=== PATIENT | male | born 1945 | race Caucasian/White ===

== ENCOUNTER → 2023-08-27 08:22 | Outpatient (REF) | payer MEDICARE, OTHER, SELFPAY ==
[2023-08-27 10:01] LABS: % Eosinophils 9.7 % (0-6); % Immature Granulocytes 0.3 % (0-0.5); % Lymphocytes 16.5 % (20.5-51.1); % Monocytes 5.5 % (1.7-9.3); Absolute Basophils 0.1 10^3/uL (0-0.2); Absolute Eosinophils 1.2 10^3/uL (0-0.7); Absolute Lymphocytes 2.1 10^3/uL (1.2-3.4); Absolute Monocytes 0.7 10^3/uL (0.1-0.6); Absolute Neutrophils 8.4 10^3/uL (1.4-6.5); Hematocrit 47.5 % (39.0-52.0); Hemoglobin 15.7 g/dL (13.0-18.0); Mean Corp Hgb Conc. 33.1 g/dL (33.0-37.0); Mean Corpuscular Hgb 31.1 pg (27.0-31.0); Mean Corpuscular Volume 94.1 fL (80.0-94.0); Mean Platelet Volume 9.7 fL (7.4-10.4); Nucleated Red Blood Cells % 0 % (-); Platelet Count 297 10^3/uL (130-400); Red Blood Cell Count 5.05 10^6/uL (4.70-6.10); Red Cell Dist. Width 15.3 % (11.5-14.5); White Blood Cell Count 12.5 10^3/uL (4.8-10.8)
[2023-08-27 10:45] LABS: ALT (SGPT) 24 U/L (0-50); AST (SGOT) 36 U/L (17-59); Albumin 3.2 g/dl (3.5-5.0); Alkaline Phosphatase 109 U/L (38-126); Blood Urea Nitrogen 12 mg/dl (9-20); Carbon Dioxide 32 mmol/L (22-30); Chloride 108 mmol/L (98-107); Glucose 121 mg/dl (70-99); HDL Cholesterol 36 mg/dl; LDL Cholesterol, Calculated 56 mg/dl; Potassium 3.6 mmol/L (3.5-5.1); Sodium 141 mmol/L (135-145); Total Bilirubin 0.7 mg/dl (0.2-1.3); Total Cholesterol 111 mg/dl (50-199); Total Protein 6.5 g/dl (6.3-8.2); Triglyceride 99 mg/dl (10-149); Very Low Density Lipoprotein 19 mg/dl (0-30); eGFR > 60.00
[2023-08-27 11:07] LABS: TSH Reflex To Free T4 3.23 uIU/ml (0.47-4.68)
[2023-08-27 11:11] LABS: Microalbumin, Random Urine < 0.6 mg/dl (0.6-1.7)
[2023-08-27 13:24] LABS: Glycohemoglobin (HgbA1c) 6.2 % (4.0-5.6)
== END ==
LOC: HWLAB 08:22
PROVIDERS: ATTENDING PHYSICIAN Nurse Practitioner Family
DX: D72.829 Elevated white blood cell count, unspecified (principal); I10 Essential (primary) hypertension; E78.2 Mixed hyperlipidemia; E11.9 Type 2 diabetes mellitus without complications; J84.10 Pulmonary fibrosis, unspecified; J98.4 Other disorders of lung; J47.9 Bronchiectasis, uncomplicated; I25.10 Atherosclerotic heart disease of native coronary artery without angina pectoris; E88.09 Other disorders of plasma-protein metabolism, not elsewhere classified; R19.7 Diarrhea, unspecified; M54.2 Cervicalgia; R31.9 Hematuria, unspecified; Z12.5 Encounter for screening for malignant neoplasm of prostate; E66.9 Obesity, unspecified; R63.4 Abnormal weight loss
CPT/HCPCS: 36415; 80053; 80061; 82043; 83036; 84443; 85025

== ENCOUNTER → 2023-08-29 15:23 | Outpatient (REF) | payer MEDICARE, OTHER, SELFPAY | LOC: HWRAD 15:23 | PROVIDERS: ATTENDING PHYSICIAN Nurse Practitioner Family | DX: R05.9 Cough, unspecified (principal); J84.10 Pulmonary fibrosis, unspecified | CPT/HCPCS: 71046 ==

== ENCOUNTER → 2023-09-18 08:10 | Outpatient (REF) | payer MEDICARE, OTHER, SELFPAY | LOC: HWRAD 08:10 | PROVIDERS: ATTENDING PHYSICIAN Nurse Practitioner Family; OTHER PHYSICIAN Internal Medicine; REFERRING PHYSICIAN Internal Medicine Critical Care Medicine | DX: R63.4 Abnormal weight loss (principal); R05.9 Cough, unspecified; J84.10 Pulmonary fibrosis, unspecified | CPT/HCPCS: 71250; 76700 ==

== ENCOUNTER 2023-09-29 11:20 | Emergency (ER) | payer MEDICARE, OTHER, SELFPAY ==
[2023-09-29 11:21] VITALS: BP 174/79
--- NOTE | 2023-09-29 11:29 | ED.GENMED ---
History of Present Illness
General
Chief Complaint: Flank Pain
Source: patient
Exam Limitations: none
Time Seen by Provider: 09/29/23 11:26
Travel History
Have you had any contact with someone who has COVID-19?: No
Do you have any symptoms of coronavirus? Fever > 100 degrees, chills, cough, shortness of breath, sore throat, loss of taste or smell, muscle aches, or headache?: No
History of Present Illness
History of Present Illness:
See MDM
Past History
Past History
ED Past Medical History: CAD, HTN, Hypercholesterolemia and Other (Kidney stones)
ED Past Surgical History: Cardiac and Tonsilectomy
Social History
Tobacco: Non-smoker
Alcohol: None
Phy Exam
Physical Exam
Physical Exam:
See MDM
Course
Orders/Labs/Results
Orders:
Orders
09/29/23 11:28
CT Abd/pel Without Iv Or Oral Urgent
Comment:
Reason For Exam: Sudden R flank pain
0.9% Sodium Chloride 1000 ml [Nss] 1,000 ml IV BOLUS
Ketorolac [Toradol] 30 mg IV NOW STA
Morphine Sulfate 4 mg IV NOW STA
Ondansetron Injectable [Zofran] 4 mg IV NOW STA
09/29/23 12:03
Complete Blood Count/With Diff Urgent
Comprehensive Metabolic Panel Urgent
Urinalysis Reflex To Culture Urgent
Date Specimen was Collected: 09/29/23
Time Specimen was Collected: 11:52
Urine Microscopic Reflex Cult Urgent
Abnormal Lab Results
09/29/23
12:03
WBC 17.0 H 10^3/uL
(4.8-10.8)
MCV 95.7 H fL
(80.0-94.0)
MCH 31.6 H pg
(27.0-31.0)
RDW 15.9 H %
(11.5-14.5)
Abs Immat Gran (auto) 0.1 H 10^3/uL
(0-0.05)
Absolute Neuts (auto) 14.8 H 10^3/uL
(1.4-6.5)
Absolute Lymphs (auto) 1.1 L 10^3/uL
(1.2-3.4)
Neutrophils % 87.0 H %
(42.2-75.2)
Lymphocytes % 6.6 L %
(20.5-51.1)
BUN 22 H mg/dl
(9-20)
Glucose 167 H mg/dl
(70-99)
Ur Occult Blood Reflex 2+ A
(Negative)
Urine RBC 3-6 A /HPF
(0-2)
Urine Glucose 3+ A
(Negative)
09/29/23 12:03
09/29/23 12:03
Vital Signs
Initial and Last Documented VS:
Initial Vital Signs
Pulse Resp BP Pulse Ox
47 18 174/79 98
09/29/23 11:21 09/29/23 11:21 09/29/23 11:21 09/29/23 11:21
Last Documented Vital Signs
Pulse Resp BP Pulse Ox
66 18 129/79 97
09/29/23 14:45 09/29/23 14:45 09/29/23 14:45 09/29/23 14:45
MDM/Problems Addressed
Differential Diagnosis Includes:
HPI and MDM Narrative:
77-year-old male presenting for evaluation of sudden onset of right flank pain. This occurred while he was eating breakfast. The pain is shooting into his right groin. This is reminiscent of prior episode where he was diagnosed with kidney stone.
He is nauseous but no vomiting. He denies hematuria or urinary symptoms.
I went to the patient's room immediately. Will treat pain with morphine and Toradol and will treat nausea with Zofran. Will obtain CT to rule out kidney stone pathology
Physical exam
General: Uncomfortable
HEENT: protecting airway
Neck: appears supple
CV: No evidence of cyanosis
Resp: No accessory muscle use
Abd: Non-distended. No abdominal tenderness localized to palpation
Extremities: No deformities
Neuro: alert
Psych: Normal affect
Skin: Intact
Problems Addressed including Acute and Chronic Conditions affecting care:
1. Flank pain
Acuity: acute
Prognosis: stable
Details: Given his history, likely in the setting of kidney stone pathology. Will obtain CT. Patient given Toradol and morphine
2. Nausea
Acuity: acute
Prognosis: stable
Details: Will give IV Zofran
Updates
CT consistent with distal right stone. On multiple reassessments, patient feeling better. Urine negative for infection. Patient will follow-up with PCP and urologist.
Differential Diagnosis (but not limited to): Kidney stage, appendicitis, colitis
Testing considered: EKG
Drug therapy (if applicable): OTC meds, please see d/c instruction regarding Rx drugs
Amount and/or Complexity of Data Reviewed
Clinical info obtained from: Patient
External data reviewed: N/A
Labs I independently reviewed (but not limited to): Leukocytosis (likely reactive)
Radiology: The CT scan was personally and independently reviewed. In addition, official CT report reviewed.
Pulse Ox: not hypoxic
EKG independently reviewed: N/A
Arabic Teacher: N/A
Critical Care: N/A
Risk of Complication:
Social Determinants of health: Good social support
Discussed with other providers: N/A
Escalation of Care includes Admit/Obs: After being observed in the Emergency Department, pt stable for discharge.
Occasional wrong word or 'sound a like' substitutions may have occurred due to the inherent limitations of voice recognition software. Read the chart carefully and recognize, using context, where substitutions have occurred.
*Critical Care Note
Total Time (30-74mins, 75-104mins- exclusive of procedures): Not Applicable
ED Attending Note
-
Portions of this chart may have been created with voice recognition software.� Occasional wrong word or��sound alike� substitutions may have occurred due to the inherent limitations of voice recognition software.
Discharge Plan
Departure
Patient Disposition: Home (Routine Discharge)
Date of Disposition: 09/29/23
Time of Disposition: 15:12
Patient with high blood pressure during this ER visit?: No
Discharge Problem:
Kidney stone on right side
Instructions: Kidney Stones (DC), How to Strain Your Urine
Prescriptions:
New
tamsulosin [Flomax] 0.4 mg Capsule
0.4 mg PO DAILY Qty: 14 0RF
diclofenac potassium 50 mg tablet
50 mg PO BID Qty: 20 0RF
ondansetron 4 mg Tablet,Disintegrating
4 mg PO BIDPRN PRN (Reason: nausea/vomiting) Qty: 10 0RF
oxycodone 5 mg tablet
5 mg PO Q8H PRN (Reason: Pain) Qty: 14 0RF
Referrals:
Rosendo Gonzalez CRNP [Family Provider] -
Activity Restrictions/Additional Instructions:
Please return for any worsening symptoms.
You may return at any time if you have further concerns.
Please follow up with your doctor at the first available appointment, preferably this week.
Thank you for choosing [facility].
Interventions
Interventions:
*Risk Screen - Suicide Last Done: 09/29/23 11:21
*General Assessment Last Done: 09/29/23 11:21
*Neglect/Abuse Screening Last Done: 09/29/23 11:21
*ED COVID-19 Vaccine History Last Done: 09/29/23 11:21
NT-Eojxge-Zcddbvutpn Assessment Last Done: 09/29/23 12:19
ED-Male Genitourinary Assessment Last Done: 09/29/23 12:21
[2023-09-29] MEDS: MORPHINE SULFATE 4 MG IV (12:05)
[2023-09-29] MEDS: ZOFRAN 4 MG IV (12:05)
[2023-09-29] MEDS: TORADOL 30 MG IV (12:06)
[2023-09-29] MEDS: NSS 1000 IV (12:10)
[2023-09-29 12:28] LABS: Urine Albumin Negative (Neg - Trace); Urine Bilirubin Negative (Negative); Urine Character Clear (Clear); Urine Color Yellow; Urine Glucose 3+ (Negative); Urine Ketone Negative (Negative); Urine Leukocyte Negative (Negative); Urine Nitrite Negative (Negative); Urine Occult Blood 2+ (Negative); Urine Specific Gravity 1.015 (<1.030); Urine Urobilinogen Negative (Neg - 1+)
[2023-09-29 12:29] LABS: % Basophils 0.4 % (0-2); % Eosinophils 2.8 % (0-6); % Immature Granulocytes 0.4 % (0-0.5); % Lymphocytes 6.6 % (20.5-51.1); % Monocytes 2.8 % (1.7-9.3); Absolute Basophils 0.1 10^3/uL (0-0.2); Absolute Eosinophils 0.5 10^3/uL (0-0.7); Absolute Immature Granulocytes 0.1 10^3/uL (0-0.05); Absolute Lymphocytes 1.1 10^3/uL (1.2-3.4); Absolute Monocytes 0.5 10^3/uL (0.1-0.6); Absolute Neutrophils 14.8 10^3/uL (1.4-6.5); Hematocrit 51.8 % (39.0-52.0); Hemoglobin 17.1 g/dL (13.0-18.0); Mean Corpuscular Hgb 31.6 pg (27.0-31.0); Mean Corpuscular Volume 95.7 fL (80.0-94.0); Mean Platelet Volume 10.4 fL (7.4-10.4); Nucleated Red Blood Cells % 0 % (-); Platelet Count 229 10^3/uL (130-400); Red Blood Cell Count 5.41 10^6/uL (4.70-6.10); Red Cell Dist. Width 15.9 % (11.5-14.5)
[2023-09-29 12:33] LABS: ALT (SGPT) 22 U/L (0-50); AST (SGOT) 35 U/L (17-59); Albumin 3.6 g/dl (3.5-5.0); Alkaline Phosphatase 91 U/L (38-126); Blood Urea Nitrogen 22 mg/dl (9-20); Calcium 9.3 mg/dl (8.4-10.2); Carbon Dioxide 29 mmol/L (22-30); Chloride 104 mmol/L (98-107); Glucose 167 mg/dl (70-99); Potassium 3.9 mmol/L (3.5-5.1); Sodium 141 mmol/L (135-145); Total Bilirubin 0.8 mg/dl (0.2-1.3); Total Protein 6.7 g/dl (6.3-8.2); eGFR > 60.00
[2023-09-29 12:47] LABS: Urine White Cell 0-2 /HPF (0-5)
[2023-09-29 14:09] VITALS: BP 113/73
[2023-09-29 14:44] VITALS: BP 128/79
[2023-09-29 14:45] VITALS: BP 129/79
== END 2023-09-29 15:39 | disposition home or self-care (01) ==
LOC: EMR 11:20
PROVIDERS: EMERGENCY PHYSICIAN Student in an Organized Health Care Education/Training Program; FAMILY PHYSICIAN Nurse Practitioner Family
DX: N20.0 Calculus of kidney (principal); D72.829 Elevated white blood cell count, unspecified; Z87.442 Personal history of urinary calculi
CPT/HCPCS: 99284; 96374; 96375 ×2; 74176; 80053; 81003; 81015; 85025

== ENCOUNTER → 2023-10-07 10:25 | Outpatient (REF) | payer MEDICARE, OTHER, SELFPAY ==
[2023-10-07 12:31] LABS: % Basophils 0.5 % (0-2); % Eosinophils 6.7 % (0-6); % Immature Granulocytes 0.3 % (0-0.5); % Lymphocytes 9.9 % (20.5-51.1); % Neutrophils 76.6 % (42.2-75.2); Absolute Basophils 0.1 10^3/uL (0-0.2); Absolute Eosinophils 1.2 10^3/uL (0-0.7); Absolute Immature Granulocytes 0.1 10^3/uL (0-0.05); Absolute Lymphocytes 1.7 10^3/uL (1.2-3.4); Absolute Neutrophils 13.2 10^3/uL (1.4-6.5); Hematocrit 48.8 % (39.0-52.0); Hemoglobin 15.7 g/dL (13.0-18.0); Mean Corp Hgb Conc. 32.2 g/dL (33.0-37.0); Mean Corpuscular Hgb 31.4 pg (27.0-31.0); Mean Corpuscular Volume 97.6 fL (80.0-94.0); Mean Platelet Volume 10.8 fL (7.4-10.4); Nucleated Red Blood Cells % 0 % (-); Platelet Count 224 10^3/uL (130-400); Red Cell Dist. Width 15.8 % (11.5-14.5); White Blood Cell Count 17.2 10^3/uL (4.8-10.8)
== END ==
LOC: HWLAB 10:25
PROVIDERS: ATTENDING PHYSICIAN Internal Medicine Critical Care Medicine; FAMILY PHYSICIAN Nurse Practitioner Family
DX: R91.8 Other nonspecific abnormal finding of lung field (principal)
CPT/HCPCS: 36415; 85025

== ENCOUNTER → 2023-10-14 13:15 | Outpatient (REF) | payer MEDICARE, OTHER, SELFPAY | LOC: HWRAD 13:15 | PROVIDERS: ATTENDING PHYSICIAN Internal Medicine Critical Care Medicine; FAMILY PHYSICIAN Nurse Practitioner Family | DX: R91.8 Other nonspecific abnormal finding of lung field (principal); Z87.01 Personal history of pneumonia (recurrent) | CPT/HCPCS: 71250 ==

== ENCOUNTER 2023-10-15 06:32 | Day surgery (SDC) | payer MEDICARE, OTHER, SELFPAY ==
[2023-10-02 09:22] VITALS: BMI 26.1
--- NOTE | 2023-10-06 12:09 | PTCARENOTE ---
Gisselle at 's office was notified of WBC count of 17.0 collected on 09/28.
--- NOTE | 2023-10-09 12:15 | PTCARENOTE ---
Patients 10/06 WBC 17.2 message left on machine for Gisselle Bob' office
[2023-10-15] VITALS (12 sets, daily range): BP systolic 96–134; BP diastolic 59–78; BMI 25.4
[2023-10-15 09:33] LABS: Glucose - Point of Care 80 mg/dl (70-99)
[2023-10-15 12:29] LABS: Glucose - Point of Care 123 mg/dl (70-99)
== END 2023-10-15 14:05 | disposition home or self-care (01) ==
LOC: GI 06:32
PROVIDERS: ATTENDING PHYSICIAN Internal Medicine Critical Care Medicine
DX: D38.1 Neoplasm of uncertain behavior of trachea, bronchus and lung (principal); J84.9 Interstitial pulmonary disease, unspecified; R91.8 Other nonspecific abnormal finding of lung field; R05.3 Chronic cough
CPT/HCPCS: 31629; 31623; 31628; 31624; 31654; 88172; 88173; 88305; 71045; 76000; 82962; 87015; 87070; 87102; 87116; 87205; 88112; 88333; 88341; 88342; 94640; C1887

== ENCOUNTER → 2024-01-21 09:49 | Outpatient (REF) | payer MEDICARE, OTHER, SELFPAY | LOC: MRI 3T 09:49 | PROVIDERS: ATTENDING PHYSICIAN Physician Assistant; FAMILY PHYSICIAN Nurse Practitioner Family; REFERRING PHYSICIAN Internal Medicine | DX: R91.8 Other nonspecific abnormal finding of lung field (principal) | CPT/HCPCS: 70553; A9575 ==

== ENCOUNTER → 2024-04-21 08:30 | Outpatient (REF) | payer MEDICARE, OTHER, SELFPAY ==
[2024-04-21 12:29] LABS: % Basophils 0.5 % (0-2); % Eosinophils 2.3 % (0-6); % Immature Granulocytes 0.5 % (0-0.5); % Lymphocytes 20.2 % (20.5-51.1); % Monocytes 7.2 % (1.7-9.3); % Neutrophils 69.3 % (42.2-75.2); Absolute Eosinophils 0.2 10^3/uL (0-0.7); Absolute Lymphocytes 1.7 10^3/uL (1.2-3.4); Absolute Monocytes 0.6 10^3/uL (0.1-0.6); Absolute Neutrophils 5.8 10^3/uL (1.4-6.5); Hematocrit 41.1 % (39.0-52.0); Mean Corp Hgb Conc. 34.1 g/dL (33.0-37.0); Mean Corpuscular Hgb 32.3 pg (27.0-31.0); Mean Corpuscular Volume 94.9 fL (80.0-94.0); Mean Platelet Volume 10.5 fL (7.4-10.4); Nucleated Red Blood Cells % 0 % (-); Platelet Count 143 10^3/uL (130-400); Red Blood Cell Count 4.33 10^6/uL (4.70-6.10); Red Cell Dist. Width 17.2 % (11.5-14.5); White Blood Cell Count 8.4 10^3/uL (4.8-10.8)
[2024-04-21 12:55] LABS: ALT (SGPT) 24 U/L (0-50); AST (SGOT) 38 U/L (17-59); Albumin 3.1 g/dl (3.5-5.0); Alkaline Phosphatase 95 U/L (38-126); Blood Urea Nitrogen 16 mg/dl (9-20); Calcium 8.6 mg/dl (8.4-10.2); Carbon Dioxide 31 mmol/L (22-30); Chloride 103 mmol/L (98-107); Glucose 89 mg/dl (70-99); HDL Cholesterol 38 mg/dl; LDL Cholesterol, Calculated 69 mg/dl; Potassium 3.6 mmol/L (3.5-5.1); Sodium 143 mmol/L (135-145); Total Bilirubin 0.5 mg/dl (0.2-1.3); Total Cholesterol 121 mg/dl (50-199); Total Protein 5.4 g/dl (6.3-8.2); Triglyceride 74 mg/dl (10-149); Very Low Density Lipoprotein 14 mg/dl (0-30); eGFR > 60.00
[2024-04-21 13:02] LABS: Glycohemoglobin (HgbA1c) 6.1 % (4.0-5.6); Microalbumin, Random Urine 0.6 mg/dl (0.6-1.7)
[2024-04-21 13:09] LABS: PSA, Total - Screen 2.81 ng/ml (0.0-4.0); TSH Reflex To Free T4 2.38 uIU/ml (0.47-4.68)
== END ==
LOC: HWLAB 08:30
PROVIDERS: ATTENDING PHYSICIAN Nurse Practitioner Family; OTHER PHYSICIAN Internal Medicine; OTHER PHYSICIAN Specialist; REFERRING PHYSICIAN Internal Medicine Critical Care Medicine
DX: D72.829 Elevated white blood cell count, unspecified (principal); I10 Essential (primary) hypertension; E78.2 Mixed hyperlipidemia; E11.9 Type 2 diabetes mellitus without complications; J84.10 Pulmonary fibrosis, unspecified; J98.4 Other disorders of lung; J47.9 Bronchiectasis, uncomplicated; I25.10 Atherosclerotic heart disease of native coronary artery without angina pectoris; E88.09 Other disorders of plasma-protein metabolism, not elsewhere classified; R19.7 Diarrhea, unspecified; M54.2 Cervicalgia; R31.9 Hematuria, unspecified; Z12.5 Encounter for screening for malignant neoplasm of prostate; E66.9 Obesity, unspecified; R63.4 Abnormal weight loss
CPT/HCPCS: 36415; 80053; 80061; 82043; 82570; 83036; 84443; 85025; G0103

== ENCOUNTER → 2024-10-06 09:05 | Outpatient (REF) | payer MEDICARE, OTHER, SELFPAY | LOC: HWRCS 09:05 | PROVIDERS: ATTENDING PHYSICIAN Internal Medicine; FAMILY PHYSICIAN Nurse Practitioner Family | DX: I25.10 Atherosclerotic heart disease of native coronary artery without angina pectoris (principal); I45.10 Unspecified right bundle-branch block | CPT/HCPCS: 93306 ==

== ENCOUNTER 2024-12-01 03:57 | Emergency (ER) | payer MEDICARE, OTHER, SELFPAY ==
[2024-12-01 03:59] VITALS: BP 167/108
[2024-12-01 04:20] VITALS: BMI 26.0
[2024-12-01 04:33] VITALS: BP 144/84
[2024-12-01 05:05] LABS: Urine Albumin Negative (Neg - Trace); Urine Bilirubin Negative (Negative); Urine Character Clear (Clear); Urine Color Yellow; Urine Glucose 4+ (Negative); Urine Ketone Negative (Negative); Urine Leukocyte Negative (Negative); Urine Nitrite Negative (Negative); Urine Occult Blood 4+ (Negative); Urine Specific Gravity 1.025 (<1.030); Urine Urobilinogen Negative (Neg - 1+)
--- NOTE | 2024-12-01 05:41 | ED.GENMED ---
History of Present Illness
General
Chief Complaint: Male Genito-Urinary Symptoms
Source: patient and significant other
Exam Limitations: none
Time Seen by Provider: 12/01/24 04:06
Nursing documentation reviewed up to this point in time: agreed with
History of Present Illness
History of Present Illness:
Pleasant 78-year-old male presents to the emergency department with urinary retention. He states since his last urination was earlier this morning. He states that for the rest of the day he was constipated and was unable to urinate. Patient drank
a liter of water and that allowed him to have a small bowel movement. He was concerned that he was still unable to urinate so he came into the emergency department. Upon arrival, patient was having a small bowel movement. A Wise catheter was
placed and over 1100 cc of urine returned. After patient's bladder was decompressed, he was able to urinate again. After being able to urinate, patient had multiple small bowel movements, evacuating his bowel according to him.
Past History
Past History
ED Past Medical History: CAD, HTN, Hypercholesterolemia and Other (Kidney stones)
ED Past Surgical History: Cardiac and Tonsilectomy
Social History
Tobacco: Non-smoker
Alcohol: None
Review of Systems
Review of Systems
Allergies reviewed?: Yes
All Other Systems: ROS reviewed and negative except as documented in HPI and ROS
Endocrine: Reports polyuria
Phy Exam
General Physical Exam
General Presentation: well appearing and no apparent distress
General Skin: warm and dry
General Habitus: normal
General Mental: alert
General Hydration: appears well hydrated
ENT Exam
ENT Exam: EOMI, pharynx normal, neck supple and normocephalic
Eye Exam
Eye Exam: PERRL, cornea clear and conjunctiva normal
Cardiovascular Exam
Cardiovascular Exam: regular rate/rhythm, no edema, no murmur and normal peripheral pulses
Pulmonary Exam
Pulmonary Exam: lungs clear, no respiratory distress, no rales, no crackles, no rhonchi, no stridor, no wheezing and no cough
Gastrointestinal Exam
Gastrointestinal Exam: normal bowel sounds, non tender, soft, no organomegaly, no pulsatile mass and non distended
Neurological Exam
Neurological Exam: alert, oriented x3, no motor deficits and speech normal
Musculoskeletal Exam
Musculoskeletal Exam: full ROM and no edema
Skin Exam
Skin Exam: normal color, warm/dry, no rash and no petechia
Psychiatric Exam
Psychiatric Exam: normal mood/affect
Course
Orders/Labs/Results
Orders:
Orders
12/01/24 04:15
Wise [Wise Placement- Treatment] ONCE
Reason for insertion: Acute Retention
Bladder Scan As Directed
Follow Bladder Retention/Intermittent Cath Algorithm?: No
If Bladder Scan Result >: 400
then:: Straight cath
12/01/24 04:43
Urinalysis Reflex To Culture Urgent
Date Specimen was Collected: 12/01/24
Time Specimen was Collected: 04:39
Urine Microscopic Reflex Cult Urgent
Abnormal Lab Results
12/01/24
04:43
Ur Occult Blood Reflex 4+ A
(Negative)
Urine Glucose 4+ A
(Negative)
Vital Signs
Initial and Last Documented VS:
Initial Vital Signs
Temp Pulse Resp BP Pulse Ox
97.7 F 94 20 167/108 94
12/01/24 03:59 12/01/24 03:59 12/01/24 03:59 12/01/24 03:59 12/01/24 03:59
Last Documented Vital Signs
Temp Pulse Resp BP Pulse Ox
97.7 F 84 20 144/84 98
12/01/24 03:59 12/01/24 04:33 12/01/24 04:33 12/01/24 04:33 12/01/24 04:33
*Critical Care Note
Total Time (30-74mins, 75-104mins- exclusive of procedures): Not Applicable
ED Attending Note
-
Portions of this chart may have been created with voice recognition software.� Occasional wrong word or��sound alike� substitutions may have occurred due to the inherent limitations of voice recognition software.
Discharge Plan
Departure
Patient Disposition: Home (Routine Discharge)
Date of Disposition: 12/01/24
Time of Disposition: 05:57
Patient with high blood pressure during this ER visit?: Yes
Condition: Good
Discharge Problem:
Urinary retention
Instructions: How to Care for Your Wies Catheter, Male, Urinary Retention (DC), BLOOD PRESSURE
Prescriptions:
New
tamsulosin [Flomax] 0.4 mg capsule
0.4 mg PO DAILY Qty: 7 0RF
No Action
losartan 50 mg Tablet
50 mg PO DAILY
metformin 500 mg Tablet
500 mg PO BID
atorvastatin 80 mg Tablet
80 mg PO HS
sildenafil 50 mg Tablet
50 mg PO HS
aspirin [Aspir-81] 81 mg Tablet,Delayed Release (Dr/Ec)
81 mg PO DAILY
metoprolol tartrate 50 mg Tablet
100 mg PO DAILY
metoprolol tartrate 50 mg Tablet
50 mg PO HS
ipratropium bromide 42 mcg (0.06 %) [place],Non-Aerosol
2 spray INTRANASAL TID
esomeprazole magnesium [Nexium] 20 mg Capsule,Delayed Release(Dr/Ec)
20 mg PO HS
Jardiance 10 mg Tablet
10 mg PO DAILY
Ofev 100 mg Capsule
100 mg PO Q12H
Cbd
1 gummy PO DAILY
Rx Instructions:
10mg gummy
Referrals:
Rosendo Gonzalez CRNP [Family Provider] -
Activity Restrictions/Additional Instructions:
Thank You for choosing [facility].
It was a pleasure meeting you and taking part in your care. We hope for your continued healing and wellness.
Please read discharge instructions in their entirety. However, they are for general education and may not describe your exact diagnosis at discharge. Information on your ER visit and medical conditions were discussed with you along with appropriate
follow up information...
If indicated, please take your medications as instructed and indicated on discharge paperwork.
Please schedule a follow up appointment as directed. Call to schedule an appointment
Please return to the emergency department with ANY change in, persisting, or worsening of symptoms. If any of your symptoms do not improve, or persist, or become more severe within 6-12 hours, please return to the emergency department for further
care.
Please return to the emergency department if you develop a headache, neck pain/stiffness, fever greater than 100.4F, chest pain, shortness of breath, persistent nausea, vomiting, slurred speech, difficulty walking, numbness/tingling, weakness, signs
of infection or any other symptoms that are worrisome to you.
If you have any questions or concerns please do not hesitate to call the Hospital at or E-mail me directly at [email or web address]
Interventions
Interventions:
*Risk Screen - Suicide Last Done: 12/01/24 03:59
*General Assessment Last Done: 12/01/24 03:59
*Neglect/Abuse Screening Last Done: 12/01/24 03:59
*ED- Fall Risk Assessment Last Done: 12/01/24 04:52
*ED COVID-19 Vaccine History Last Done: 12/01/24 03:59
ED-Male Genitourinary Assessment Last Done: 12/01/24 04:20
Discharge Date and Time
Print Language: PRYDEINIG
[2024-12-01 05:52] LABS: Urine Squamous Cell None seen /LPF (Few)
[2024-12-01 05:53] LABS: Urine Red Blood Cell 30-40 /HPF (0-2)
[2024-12-01 05:54] LABS: Urine White Cell 0-2 /HPF (0-5)
[2024-12-01 06:30] VITALS: BP 138/87
== END 2024-12-01 06:54 | disposition home or self-care (01) ==
LOC: EMR 03:57
PROVIDERS: EMERGENCY PHYSICIAN Student in an Organized Health Care Education/Training Program; FAMILY PHYSICIAN Nurse Practitioner Family
DX: R33.9 Retention of urine, unspecified (principal); I25.10 Atherosclerotic heart disease of native coronary artery without angina pectoris; I10 Essential (primary) hypertension; E78.00 Pure hypercholesterolemia, unspecified; Z87.442 Personal history of urinary calculi
CPT/HCPCS: 51702; 99283; 81003; 81015

== ENCOUNTER → 2025-02-11 09:15 | Outpatient (REF) | payer MEDICARE, OTHER, SELFPAY ==
[2025-02-11 12:29] LABS: Hematocrit 46.5 % (39.0-52.0); Hemoglobin 14.9 g/dL (13.0-18.0); Mean Corp Hgb Conc. 32.0 g/dL (33.0-37.0); Mean Corpuscular Volume 91.4 fL (80.0-94.0); Nucleated Red Blood Cells % 0.3 % (-); Platelet Count 195 10^3/uL (130-400); Red Cell Dist. Width 16.8 % (11.5-14.5)
[2025-02-11 13:09] LABS: ALT (SGPT) 24 U/L (0-50); AST (SGOT) 42 U/L (17-59); Albumin 3.8 g/dl (3.5-5.0); Alkaline Phosphatase 115 U/L (38-126); Blood Urea Nitrogen 25 mg/dl (9-20); Calcium 8.9 mg/dl (8.4-10.2); Carbon Dioxide 28 mmol/L (22-30); Chloride 108 mmol/L (98-107); Glucose 109 mg/dl (70-99); Potassium 4.4 mmol/L (3.5-5.1); Sodium 141 mmol/L (135-145); Total Protein 6.9 g/dl (6.3-8.2); eGFR > 60.00
== END ==
LOC: HWLAB 09:15
PROVIDERS: ATTENDING PHYSICIAN Internal Medicine Critical Care Medicine; FAMILY PHYSICIAN Nurse Practitioner Family; REFERRING PHYSICIAN Specialist
DX: Z51.81 Encounter for therapeutic drug level monitoring (principal); I10 Essential (primary) hypertension; J98.4 Other disorders of lung; J47.9 Bronchiectasis, uncomplicated; I25.10 Atherosclerotic heart disease of native coronary artery without angina pectoris; E88.09 Other disorders of plasma-protein metabolism, not elsewhere classified; R19.7 Diarrhea, unspecified; M54.2 Cervicalgia; E66.9 Obesity, unspecified
CPT/HCPCS: 36415; 80053; 82248; 85025; 85652

== ENCOUNTER → 2025-02-18 12:39 | Outpatient (REF) | payer MEDICARE, OTHER, SELFPAY | LOC: RAD 12:39 | PROVIDERS: ATTENDING PHYSICIAN Internal Medicine Critical Care Medicine; FAMILY PHYSICIAN Nurse Practitioner Family; OTHER PHYSICIAN Specialist | DX: J84.10 Pulmonary fibrosis, unspecified (principal); R06.02 Shortness of breath | CPT/HCPCS: 71275; Q9967 ==

== ENCOUNTER 2025-02-23 16:51 | Inpatient (IN) | payer MEDICARE, OTHER, SELFPAY ==
[2025-02-23] VITALS (9 sets, daily range): BP systolic 108–138; BP diastolic 76–91; BMI 26.7; BMI 25.0
[2025-02-23] MEDS: SOLU-MEDROL PF 125 MG IV (12:47)
[2025-02-23] MEDS: DUONEB 3 ML INH ×2 (12:47→20:26)
[2025-02-23 12:51] LABS: Hematocrit 49.2 % (39.0-52.0); Hemoglobin 15.8 g/dL (13.0-18.0); Mean Corp Hgb Conc. 32.1 g/dL (33.0-37.0); Mean Corpuscular Volume 91.4 fL (80.0-94.0); Nucleated Red Blood Cells % 0 % (-); Platelet Count 298 10^3/uL (130-400); Red Cell Dist. Width 17.9 % (11.5-14.5)
[2025-02-23 13:11] LABS: Blood Urea Nitrogen 21 mg/dl (9-20); Calcium 9.4 mg/dl (8.4-10.2); Carbon Dioxide 28 mmol/L (22-30); Chloride 105 mmol/L (98-107); Glucose 82 mg/dl (70-99); Sodium 140 mmol/L (135-145); eGFR > 60.00
[2025-02-23 13:15] LABS: Troponin I < 0.012 ng/ml
--- NOTE | 2025-02-23 14:47 | ED.GENMED ---
History of Present Illness
General
Chief Complaint: Breathing Problem
Source: patient
Exam Limitations: none
Time Seen by Provider: 02/23/25 12:09
Nursing documentation reviewed up to this point in time: agreed with
History of Present Illness
History of Present Illness:
79-year-old male with a past medical history of hypertension, hyperlipidemia, CAD, pulmonary fibrosis, chronic respiratory failure on 2 L of home oxygen, lung cancer, diabetes who presents to the emergency department for evaluation of shortness of
breath. Patient reports that he has chronic dyspnea but that it has been progressively worse over the past few weeks to months. He says that he has mild associated cough but this is chronic and not really productive. He denies any associated
chest pain. He denies any associated swelling of the legs. He denies any fever or chills. He does have chronic rhinorrhea but this is not an acute change. 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
the symptoms and had an outpatient CT angiogram which was negative for PE and showed stable findings�this was done on 02/18/2025. With symptoms still progressing was referred to the ER for assessment.
Past History
Past History
ED Past Medical History: CAD, HTN, Hypercholesterolemia and Other (Kidney stones)
ED Past Surgical History: Cardiac and Tonsilectomy
Social History
Tobacco: Non-smoker
Alcohol: None
Review of Systems
Review of Systems
All Other Systems: ROS reviewed and negative except as documented in HPI and ROS
Constitutional: Denies fever or chills
Respiratory: Reports cough and trouble breathing
Cardiac: Denies chest pain or palpitations
ABD/GI: Denies abdominal pain, nausea or vomiting
: Denies flank pain
Musculoskeletal: Denies edema, neck pain or back pain
Neurological: Denies dizzy or headache
Phy Exam
Physical Exam
Physical Exam:
General: Awake, alert, oriented x3; no acute distress
Head: Normocephalic, atraumatic
Eyes: Conjunctiva normal, sclera anicteric
Throat: Airway intact, handling secretions
Neck: Trachea midline, no JVD
Lungs: No tachypnea or hypoxia, diffuse Rales most pronounced at the lung bases bilaterally
Heart: Regular rate and rhythm, no murmurs, gallops, or rubs
Abd: Soft, non distended, nontender
Neuro: No gross deficits
Skin: no rash
Extremities: No edema in extremities, no calf tenderness, equal pulses in all extremities
Scores
Heart Failure Risk
Heart Failure Risk Score: Not Applicable
Heart Score for Chest Pain Patients
STEMI patient?: Not applicable
Withdrawal Assessment of Alcohol
Withdrawal Assessment Completed?: Not applicable
Course
Orders/Labs/Results
Orders:
Orders
02/23/25 12:25
Electrocardiogram (*1) Urgent
Reason for Study: Shortness of Breath
EKG- Treatment ONCE
Ipratropium/Albuterol Sulfate [Duoneb] 3 ml INH R NOW STA
MethylPREDNISolone PF [Solu-Medrol Pf] 125 mg IV NOW STA
02/23/25 12:42
Basic Metabolic Panel Urgent
Complete Blood Count/With Diff Urgent
NT-proBNP Urgent
Troponin I Urgent
Abnormal Lab Results
02/23/25
12:42
WBC 11.7 H 10^3/uL
(4.8-10.8)
MCHC 32.1 L g/dL
(33.0-37.0)
RDW 17.9 H %
(11.5-14.5)
Absolute Neuts (auto) 9.4 H 10^3/uL
(1.4-6.5)
Absolute Monos (auto) 0.7 H 10^3/uL
(0.1-0.6)
Neutrophils % 80.0 H %
(42.2-75.2)
Lymphocytes % 12.6 L %
(20.5-51.1)
BUN 21 H mg/dl
(9-20)
02/23/25 12:42
02/23/25 12:42
Vital Signs
Initial and Last Documented VS:
Initial Vital Signs
Temp Pulse Resp BP Pulse Ox
37.1 C 76 20 129/86 95
02/23/25 10:20 02/23/25 10:20 02/23/25 10:20 02/23/25 10:20 02/23/25 10:20
Last Documented Vital Signs
Temp Pulse Resp BP Pulse Ox
37.1 C 76 20 129/86 95
02/23/25 10:20 02/23/25 10:20 02/23/25 10:20 02/23/25 10:20 02/23/25 14:56
MDM/Problems Addressed
Differential Diagnosis Includes:
Pulmonary fibrosis, pneumonia, congestive heart failure, angina, anemia
MDM/Problems Addressed:
79-year-old male presents with progressive dyspnea in the setting of known pulmonary fibrosis and chronic respiratory failure. Symptoms have been worsening over the past few weeks to months. His vital signs here are normal including a pulse ox of
95% on his normal 2 L of oxygen. His EKG shows a sinus rhythm right bundle branch block unclear chronicity. Reviewed CT from a few days ago which showed no PE, chronic findings consistent with interstitial lung disease. His lab work here was
significant for a marginal leukocytosis but no anemia. Chemistry no clinically significant abnormalities. proBNP is normal and troponin is undetectable with consistent symptoms for weeks. Nothing to suggest that this is cardiac given consistent
symptoms, undetectable troponin, no signs of heart failure. He does have significant rales this could be progression of his pulmonary fibrosis/ILD�will trial DuoNeb and steroids.
Patient with slight improvement but still with marked rales and still symptomatically feels that he cannot manage his ADLs. Will plan for admission given failure of outpatient treatment�discussed with hospitalist for admission.
Chronic conditions affecting care:
Interstitial lung disease/pulmonary fibrosis
*Radiology
Radiology exam reviewed: radiology read reviewed
*Pulse Oximetry
SaO2: 95
Oxygen Mode of Delivery: Room air
Patient hypoxic: no (95%)
*EKG
Interpreted by ED Provider?: Yes
Heart Rate: 69
Rate: normal
Rhythm: sinus
[place]: left axis deviation
Interval: normal interval
QRS Pattern: right bundle branch block
Ischemia: no ischemia
*Critical Care Note
Total Time (30-74mins, 75-104mins- exclusive of procedures): Not Applicable
Data Reviewed
Review of Other/Old Records Reveals: Labs, Records and Radiology Studies
Source: patient, records and spouse
Patient Management
Discussion with other providers: Hospitalist (Discussed with hospitalist)
Escalation/DeEscalation of care consider admission/obs:
Admission indicated
ED Attending Note
-
Portions of this chart may have been created with voice recognition software.� Occasional wrong word or��sound alike� substitutions may have occurred due to the inherent limitations of voice recognition software.
Discharge Plan
Departure
Patient Disposition: Admit
Date of Disposition: 02/23/25
Time of Disposition: 15:04
Admit to doctor: Angelita
Presentation/result/management discussed w/ accepting MD/DO: Hospitalist
Discharge Problem:
Interstitial pulmonary disease
Prescriptions:
No Action
losartan 50 mg Tablet
50 mg PO DAILY
metformin 500 mg Tablet
500 mg PO BID
atorvastatin 80 mg Tablet
80 mg PO HS
sildenafil 50 mg Tablet
50 mg PO HS
aspirin [Aspir-81] 81 mg Tablet,Delayed Release (Dr/Ec)
81 mg PO DAILY
metoprolol tartrate 50 mg Tablet
100 mg PO DAILY
metoprolol tartrate 50 mg Tablet
50 mg PO HS
ipratropium bromide 42 mcg (0.06 %) [place],Non-Aerosol
2 spray INTRANASAL TID
esomeprazole magnesium [Nexium] 20 mg Capsule,Delayed Release(Dr/Ec)
20 mg PO HS
Jardiance 10 mg Tablet
10 mg PO DAILY
Ofev 100 mg Capsule
100 mg PO Q12H
Cbd
1 gummy PO DAILY
Rx Instructions:
10mg gummy
tamsulosin [Flomax] 0.4 mg capsule
0.4 mg PO DAILY Qty: 7 0RF
Referrals:
Rosendo Gonzalez CRNP [Family Provider, Family Practice]
Interventions
Interventions:
*Risk Screen - Suicide Last Done: 02/23/25 10:20
*Neglect/Abuse Screening Last Done: 02/23/25 10:20
Discharge Date and Time
Print Language: SAMOAN
--- NOTE | 2025-02-23 15:38 | HPS.HSE ---
Addendum entered and electronically signed by Dwight Goldstein MD 02/23/25 16:29:
This is an addendum to H&P written by Thais Vila on 02/23/2025. �Patient seen and examined independently with resident.
79-year-old male past medical history of pulmonary fibrosis, chronic respiratory failure on 2 L oxygen, adenocarcinoma of lung on chemotherapy, hypertension, hyperlipidemia, CAD, diabetes, nephrolithiasis, presenting with shortness of breath.
�Worsening dyspnea over months. �Has chronic dry cough. �No chest pain. �No swelling of legs. �No fever. �Has been seeing his employee's representative Dr. Fung and oncologist and had outpatient CT PE negative for PE shows stable findings on 02/18.\\
Treated for PNA in October at [place].�
Vital signs normal. �Labs show leukocytosis. �Cardiac BNP 150.
CT chest from 02/18 shows advanced interstitial lung disease likely UIP�pattern. �There is more confluent area of nonspecific airspace consolidation within the superior segment of the right lower lobe appears slightly enlarged compared to prior.
Patient with likely ILD flare.�
�Dexamethasone 4 mg every 12. �DuoNebs every 6 hours as needed. �Check Sputum.� Pulmonary consulted.
Original Note:
Family Physician
-
Family Physician: SOFIE Rain
Chief Complaint
-
Shortness of breath
History of Present Illness
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
complaining of worsening shortness of breath over the past few months. The patient reports he has chronic dyspnea, but he has noticed this has progressively worsened over the past 3 months. At baseline, he is on 2 L of oxygen. He reports
shortness of breath occurs with activity, but denies episodes at rest. He reports history of chronic cough and chronic sinusitis. He reports cough ongoing with clear sputum which is typical for his baseline. He denies wheezing, denies chest
tightness. He denies fever, denies chills, denies night sweats. He reports he was recently treated for pneumonia in October at [facility]. He denies recent travel, denies sick contacts. He denies chest pain, denies palpitation. He follows
employee's representative (Dr Sherwood) for his symptoms, and he had a CT angio done 5 days ago. He follows oncology at [facility] for chemotherapy once a month
Medical History
Past Medical History
Past Medical History: Reports Other
Additional Past Medical History:
CAD s/p stents
Hyperlipidemia
T2DM
Interstitial fibrosis
GERD
BPH
Squamous cell carcinoma of the skin
Adenocarcinoma of the right lung
Interstitial lung disease
History of kidney stones
Past Surgical History: Reports Tonsilectomy and Other (Mohs surgery)
Social History
Tobacco: Former Smoker (Last smoked greater than 10 years ago)
Alcohol: None
Drug: None
Personal:
Living: With Family
Family History
Family History: Not pertinent
Allergies / Home Medications
Allergies reflects when Allergies were last updated in [facility].
Home Medications with original date entered in [facility]
Allergy/Medication List:
Allergies
Allergy/AdvReac Type Severity Reaction Status Date / Time
omeprazole (From Prilosec) Allergy Rash, Verified 02/23/25 10:25
Itching
Home Medications
aspirin 81 mg tablet,delayed release 81 mg PO DAILY 10/09/23
atorvastatin 80 mg tablet 80 mg PO HS 10/09/23
empagliflozin 10 mg tablet (Jardiance) 10 mg PO DAILY 10/09/23
esomeprazole magnesium 20 mg capsule,delayed release (Nexium) 20 mg PO HS 10/09/23
losartan 50 mg tablet 50 mg PO DAILY 10/09/23
metformin 500 mg tablet 500 mg PO BID 10/09/23
metoprolol tartrate 50 mg tablet 50 mg PO HS 10/09/23
metoprolol tartrate 50 mg tablet 100 mg PO DAILY 10/09/23
nintedanib 100 mg capsule (Ofev) 100 mg PO Q12H 10/09/23
acetaminophen 325 mg tablet (Tylenol) 650 mg PO Q6HPRN PRN mild pain 02/23/25
dexamethasone 4 mg tablet 4 mg PO DIRECTED 02/23/25
folic acid 1 mg tablet 1 mg PO DAILY 02/23/25
olanzapine 5 mg tablet 5 mg PO DIRECTED 02/23/25
pemetrexed disodium 500 mg intravenous powder for solution (Alimta) 900 mg IV Q4W 02/23/25
Review of Systems
-
History Source: Patient
A 12 point ROS was completed and negative except as noted: Yes
Constitutional: Reports See HPI
EENT: Reports No Symptoms
Respiratory: Reports Cough and Trouble Breathing
Cardiac: Denies Chest Pain or Palpitations
Abdomen/GI: Reports No Symptoms
: Reports No Symptoms
Physical Exam
Vital Signs
Vital Signs
Temp Pulse Resp BP Pulse Ox
98.8 F 79 20 108/77 95
02/23/25 10:20 02/23/25 15:00 02/23/25 15:00 02/23/25 15:00 02/23/25 15:00
Physical Exam
General: Well Developed, Well Nourished and No Apparent Distress
HEENT: NormoCephalic
Respiratory: Rales (Bilateral bases); No Wheezes
Cardiac: S1/S2 and Regular Rhythm
GI: Soft, Non Tender, Non Distended and Normal Bowel Sounds
Musculoskeletal: No Edema
Neuro: Awake, Alert, Oriented and AO x 3
Psych: Calm
Laboratory Results
-
02/23/25 12:42
02/23/25 12:42
Laboratory Results
Total Bilirubin Cancelled 02/23/25 12:42
AST Cancelled 02/23/25 12:42
ALT Cancelled 02/23/25 12:42
Alkaline Phosphatase Cancelled 02/23/25 12:42
Troponin I < 0.012 ng/ml 02/23/25 12:42
Impression/Plan
-
Assessment/plan
#Acute on chronic hypoxic respiratory failure in the setting of advanced interstitial lung disease
#History of pulmonary fibrosis
-Progressive dyspnea ongoing for the past few weeks
-On 2 L of home O2
-CT chest from 02/18/2025- Central airways are patent. Again seen is advanced interstitial lung disease, likely UIP pattern. Again seen is a nonspecific area of confluent parenchymal opacity within the super segment of the right lower lobe, similar
appearance compared to the outside CT from 08/03/2024 but slightly increased in size compared to the older CT from 10/14/2023. No pleural effusions or pneumothorax.
-Wean O2 to baseline
-Administered IV steroids, DuoNebs in ED
-Takes 4mg Decadron 2 days pre and post chemo tx, will continue 4mg BID
-Pulmonology consult
-Sputum culture if can produce
-Continue home regimen Ofev
#T2DM
-Hold metformin, continue Jardiance
-Coverage with SSIs, update A1c
#Essential hypertension
-Continue losartan, metoprolol titrate
#Adenocarcinoma of right lung
-On chemotherapy Alimta
-Follows [facility]
#GERD
-Continue esomeprazole
#CAD s/p stents
-Denies acute chest pain
-Continue aspirin
#Hyperlipidemia
-Continue atorvastatin
CODE STATUS DNR
DVT prophylaxis Lovenox
--- NOTE | 2025-02-23 17:35 | CM ---
CM reviewed chart and met with pt bedside in ED. Lives with his in 1 story home with finished basement, 2 GENET front, 3 [address] garage.
Independent in ADLs, personal care and ambulation at baseline, No assistive devices.
Osorio O2 from [employer], wears 2L NC constantly, has concentrator, portable concentrator and one large tank.
No hx VN or SNF
PCP: Sukumar Gonzalez
Pharmacy: [facility]
CM will continue to follow for all discharge planning needs.
--- NOTE | 2025-02-23 20:41 | PTCARENOTE ---
Pt admitted to 403-1 from ED. Pt AAOx3, ambulated to bed with steady gait. GUERRERO, on 3.5L. Call olea within reach.
[2025-02-23] MEDS: DECADRON 4 MG PO (21:22)
[2025-02-23] MEDS: LOVENOX 40 MG SC (21:25)
[2025-02-23 21:26] LABS: Glucose - Point of Care 160 mg/dl (70-99)
[2025-02-23] MEDS: LIPITOR 80 MG PO (21:27)
[2025-02-23] MEDS: LOPRESSOR 50 MG PO (21:28)
[2025-02-23] MEDS: PROTONIX PO (21:29)
--- NOTE | 2025-02-23 21:51 | W.PN.UPDATE ---
Update Note
Progress Note Update
Asked to see patient to confirm code status. Per patient, he is unsure that he wants to be DNR and would like to discuss with tomorrow. Patient would like to be Full Code tonight until discussion with . Code status changed to Full Code.
[2025-02-23] MEDS: NOVOLOG FLEXPEN-LOW RESISTANCE SC (22:34)
[2025-02-24] MEDS: DUONEB 3 ML INH ×3 (07:14→19:31)
[2025-02-24 07:15] VITALS: BP 125/83
[2025-02-24 08:19] LABS: Hematocrit 46.7 % (39.0-52.0); Hemoglobin 15.0 g/dL (13.0-18.0); Mean Corp Hgb Conc. 32.1 g/dL (33.0-37.0); Mean Corpuscular Volume 90.7 fL (80.0-94.0); Nucleated Red Blood Cells % 0 % (-); Platelet Count 296 10^3/uL (130-400); Red Cell Dist. Width 17.2 % (11.5-14.5)
[2025-02-24] MEDS: LOPRESSOR 100 MG PO (08:42)
[2025-02-24] MEDS: FARXIGA 10 MG PO (08:42)
[2025-02-24] MEDS: COZAAR 50 MG PO (08:42)
[2025-02-24] MEDS: ASPIR LOW (ENTERIC COATED) 81 MG PO (08:42)
[2025-02-24] MEDS: FOLVITE 1 MG PO (08:43)
[2025-02-24] MEDS: DECADRON 4 MG PO ×2 (08:43→20:05)
--- NOTE | 2025-02-24 09:14 | CON.PUL ---
Consultation
Consultation Request
Date/Time Consultation Requested: 02/24/25
Date/Time Consultation Performed: 02/24/25
Performing Provider: Nuris
Reason for Consultation: Hypoxia
Medical History
-
History of Present Illness:
Patient is a 79-year-old male with previous history of idiopathic pulm fibrosis, chronic respiratory failure on 2 L, adenocarcinoma of the lung status post chemotherapy, hypertension presenting with acute on chronic shortness of breath. He notes
that his shortness of breath has been progressing since July of this year. He feels he had to upper respiratory illnesses in July and then again in October treated with outpatient antibiotics. Since his October illness, he does not feel his
breathing had come back to baseline following treatment. He follows with Dr. Sherwood as an outpatient. He had recent CT scan demonstrating progression of ILD findings. He is maintained on Ofev. Initial proBNP and procalcitonin are negative on
admission. Admitted for ILD flare and placed on steroids.
Past Medical History
Past Medical History: Other (see list below)
Social History
Tobacco: Non-smoker
Alcohol: None
Drug: None
Family History
Family History: Reviewed & Not Pertinent
Allergies / Home Medications
Allergies
Allergy/AdvReac Type Severity Reaction Status Date / Time
omeprazole (From Prilosec) Allergy Rash, Verified 02/23/25 10:25
Itching
Home Medications
�Medication �Instructions �Recorded �Confirmed �Last Taken �Type
aspirin 81 mg tablet,delayed 81 mg PO DAILY 10/09/23 02/23/25 02/23/25 History
release
atorvastatin 80 mg tablet 80 mg PO HS 10/09/23 02/23/25 02/22/25 History
empagliflozin 10 mg tablet 10 mg PO DAILY 10/09/23 02/23/25 02/23/25 History
(Jardiance)
esomeprazole magnesium 20 mg 20 mg PO HS 10/09/23 02/23/25 02/22/25 History
capsule,delayed release (Nexium)
losartan 50 mg tablet 50 mg PO DAILY 10/09/23 02/23/25 02/23/25 History
metformin 500 mg tablet 500 mg PO BID 10/09/23 02/23/25 02/23/25 History
metoprolol tartrate 50 mg tablet 50 mg PO HS 10/09/23 02/23/25 02/22/25 History
metoprolol tartrate 50 mg tablet 100 mg PO DAILY 10/09/23 02/23/25 02/23/25 History
nintedanib 100 mg capsule (Ofev) 100 mg PO Q12H 10/09/23 02/23/25 02/23/25 History
acetaminophen 325 mg tablet 650 mg PO Q6HPRN PRN mild pain 02/23/25 02/23/25 02/22/25 History
(Tylenol)
dexamethasone 4 mg tablet 4 mg PO DIRECTED 02/23/25 02/23/25 Unknown History
folic acid 1 mg tablet 1 mg PO DAILY 02/23/25 02/23/25 02/23/25 History
olanzapine 5 mg tablet 5 mg PO DIRECTED 02/23/25 02/23/25 Unknown History
pemetrexed disodium 500 mg 900 mg IV Q4W 02/23/25 02/23/25 Unknown History
intravenous powder for solution
(Alimta)
Review of Systems
-
History Source: Patient
All other systems: Negative unless noted
Vitals / Labs / Diagnostic Testing
Vital Signs
Temp Pulse Resp BP Pulse Ox
97.5 F 80 20 125/83 100
02/24/25 07:15 02/24/25 08:42 02/24/25 07:15 02/24/25 08:42 02/24/25 07:15
Lab Data
02/24/25 06:52
Diagnostic Testing:
Physical Exam
-
HEENT: Normocephalic, Anicteric and Moist Mucous Membranes
Cardiovascular: S1/S2 and Regular Rhythm
Respiratory: Rales and Non-Labored Respirations
GI: Soft, Non Distended and Non Tender
Neurology: Awake, Alert, AO x 3 and No Motor Deficits
Skin: Warm, Dry and Good Color
General: Comfortable, Other (NAD) and Other (thin, chronically ill appearing)
Assessment
-
Patient is a 79-year-old male with previous history of idiopathic pulm fibrosis, chronic respiratory failure on 2 L, adenocarcinoma of the lung status post chemotherapy, hypertension presenting with acute on chronic shortness of breath. He notes
that his shortness of breath has been progressing since July of this year. He feels he had to upper respiratory illnesses in July and then again in October treated with outpatient antibiotics. Since his October illness, he does not feel his
breathing had come back to baseline following treatment. He follows with Dr. Sherwood as an outpatient. He had recent CT scan demonstrating progression of ILD findings. He is maintained on Ofev. Initial proBNP and procalcitonin are negative on
admission. Admitted for ILD flare and placed on steroids. We are consulted for evaluation 02/24/25.
AE IPF
Acute on chronic shortness of breath
Acute on chronic hypoxemia, baseline use 2 L
Anxiety
Leukocytosis, mild
Hyperkalemia
Conditions present prior to admission
Mixed hyperlipidemia
Essential (primary) hypertension
CAD s/p Stented coronary artery
IPF followed by Dr Sherwood, TLC 43% DLCO 29%--severe restriction/severe diffusion impairment
Type 2 diabetes mellitus without complications
Bronchiectasis
Lung adenocarcinoma primary status post chemotherapy
Vasomotor rhinitis
Thoracic aortic ectasia
Obesity (BMI 30-39.9)
GERD (gastroesophageal reflux disease)
Plan
Hypoxemia noted on arrival, normally on 2L NC, now on 3-4L
Wean as tolerated
Home O2 evaluation eventually
Prior history of lung disease is noted including severe end stage IPF, TLC with severe restriction
On Ofev as OP, not a transplant candidate likely based on age
Suspect patient has AE IPF, agree with IV steroids
CXR/CT obtained indicating progression of disease compared to prior
Other imaging reviewed
proBNP neg, PCT neg
Prior ECHO results from September are reviewed indicating hyperdynamic function without significant pulmonary hypertension
Repeat echo this admission to evaluate degree of PH
Optimize nutrition
PT/OT
Will need outpatient pulmonary evaluation in our office for PFTs and 6MWT
Reviewed with patient
Remains full code, would reassess code status as he would be at risk for prolongation on mechanical ventilation
He would also be appropriate for goals of care discussion with palliative referral
We will follow
Diagnostic Data
Chest X-Ray: 10/15/23-Stable findings suggesting moderate pulmonary fibrosis. Stable focal consolidation versus a mass in the right lower lung field. Status post ebus/bronchoscopy. No visualized pneumothorax.
CT Scan: CHEST 02/18/25- No CT evidence for acute pulmonary embolism. Again seen are findings compatible with advanced interstitial lung disease, likely UIP pattern. As seen previously, there is a more confluent area of non-specific airspace
consolidation within the superior segment of the right lower lobe. This area appears slightly enlarged compared to the prior CT from 10/14/2023 but similar size compared to more recent outside CT from 08/03/2024. Continued follow up suggested. Mildly
enlarged heart. Moderate aortic valve and coronary artery calcifications.
Echo: 10/06/24- Hyperdynamic left ventricular systolic function. Normal right ventricular size and function. Mild left atrial enlargement. Mild to moderate mitral regurgitation. Mild aortic stenosis, mean 10 mmHg. Dilated aortic root and ascending
aorta. Asc Ao 4.2 cm. Compared to prior study of 05/16/2021 MR has progressed to mild-moderate from mild. Aortic sclerosis has progressed to mild stenosis. The aorta has increased in diameter from 3.8 to 4.2 cm. Estimated pulmonary artery pressure
of 36 mmHg assuming a right atrial pressure of 3 mmHg.
PFT 01/04/25: The forced vital capacity was 2.01 L or 61% of predicted. The FEV1 was 1.68 L or 72% of predicted. The FEV1/FVC ratio was 84%. The lung volumes revealed moderate restrictive lung disease. The total lung capacity was 2.6 L or 43% of
predicted. The diffusing capacity was severely reduced at 6.1 or 29% of predicted. (severe restriction, severe diffusion)
Pulmonary function studies-01/09/24: Spirometry demonstrated mild restrictive lung disease. The forced vital capacity was 2.34 L or 69% of predicted. The FEV1 was 1.91 L or 79% of predicted. The FEV1/FVC ratio was 82%. Lung volumes demonstrated
moderate restrictive lung disease. The total lung capacity was 3.47 L or 56% of predicted. The diffusing capacity was 8.9 or 41% of predicted consistent with a moderate gas exchange deficit.
Reports and relevant images were personally reviewed.
Total time spent on this consultation __75__ minutes which includes review of history, physical exam, medications, laboratory data, personal review of imaging, extensive review of outpatient records, discussion with care team and respiratory therapy.
[2025-02-24 09:18] LABS: Blood Urea Nitrogen 27 mg/dl (9-20); Calcium 9.2 mg/dl (8.4-10.2); Carbon Dioxide 26 mmol/L (22-30); Chloride 105 mmol/L (98-107); Estimated Creatinine Clearance 59 ml/min; Glucose 118 mg/dl (70-99); Potassium 5.4 mmol/L (3.5-5.1); Sodium 141 mmol/L (135-145); eGFR > 60.00
[2025-02-24 09:24] LABS: Glucose - Point of Care 116 mg/dl (70-99)
[2025-02-24] MEDS: NOVOLOG FLEXPEN-LOW RESISTANCE SC ×2 (09:25→19:09)
[2025-02-24 10:16] LABS: Procalcitonin < 0.05 ng/ml (0.0-0.25)
[2025-02-24 11:40] LABS: Glucose - Point of Care 161 mg/dl (70-99)
[2025-02-24] MEDS: NOVOLOG FLEXPEN-LOW RESISTANCE 1 UNITS SC (13:20)
--- NOTE | 2025-02-24 13:29 | W.PN.HOSP.TC ---
Today's Communication/Plan
-
Assessment / Plan
Assessment / Plan
General: No Apparent Distress, Comfortable and Conversant
HEENT: NormoCephalic, Moist mucous membranes, Atraumatic, nasal cannula in place
Respiratory: Scattered inspiratory crackles bilaterally, Non Labored Respirations
Cardiac: S1/S2 and Regular Rhythm; No Rub or Gallop
GI: Soft, Non Tender, Non Distended and Normal Bowel Sounds
Musculoskeletal: No Edema, no deformity
Skin: Warm and dry
: NO Wise
Neuro: Awake, Alert, Nonfocal/grossly intact
Psych: Calm and Intact Judgment/Insight
Mr. Thomas is a 79-year-old male with a medical history of right lung adenocarcinoma (on chemotherapy with [facility]), pulmonary fibrosis, chronic respiratory failure (2 L at baseline), CAD, hypertension, and NIDDM who presented with
cough and worsening dyspnea. He feels his respiratory status has been declining over the past 3 months, roughly since that time he was last treated for pneumonia in October at [place] [facility]. He has had a chronic nonproductive cough since that time. He
feels like his breathing has become worse and he is significantly short of breath with minimal exertion. He has an oxygen concentrator that he carries with him when ambulatory and a larger concentrator that he uses when sleeping. He follows
regularly with his primary unit secretary, Dr. Sherwood, who ordered a CT angiography of his chest on 02/18 which showed no evidence of PE. He has been admitted for further evaluation and management of suspected ILD flare.
Acute on chronic hypoxic respiratory failure:
- Suspect due to flare of his interstitial lung disease, also has active adenocarcinoma of his right lung
- Continue scheduled nebulizers and Decadron
- Supplemental oxygen, titrate as needed to maintain O2 sat greater than 90%
- Sputum culture if able to obtain, however his cough has been mostly nonproductive
- Continue home regimen of Ofev
- Further guidance from pulmonology
NIDDM:
- Continue home metformin 500 mg p.o. twice daily
- Accu-Cheks, additional sliding scale as needed
- Follow-up hemoglobin A1c
CAD:
-Chronic, stable
- Continue low-dose aspirin and high intensity statin
DVT prophylaxis: Lovenox
CODE STATUS: Full code
Total time spent on today's encounter was 48 minutes
Anticipated Discharge: 24 - 48 hours
Subjective/Interval History
-
Date of Service: February 24, 2025
Patient was seen and examined at bedside this morning. Currently saturating appropriately on 2 to 3 L via nasal cannula which is close to his baseline. He is somewhat distressed about the progression of his lung disease.
Objective Data
-
Labs:
Laboratory Results
02/24/25
06:52
WBC 9.8
Hgb 15.0
Hct 46.7
Plt Count 296
Sodium 141
Potassium 5.4 H
Chloride 105
Carbon Dioxide 26
BUN 27 H
Creatinine 0.9
Glucose 118 H
Calcium 9.2
Vital Signs:
Vital Signs
Temp Pulse Resp BP Pulse Ox
97.5 F 88 26 125/83 95
02/24/25 07:15 02/24/25 11:17 02/24/25 11:17 02/24/25 08:42 02/24/25 08:30
Review of Systems
-
History Source: Patient
All other systems: Reviewed and negative
Respiratory: Reports Cough and Trouble Breathing
Physical Exam
-
General: No Apparent Distress
[2025-02-24] MEDS: NON-FORMULARY ITEM PO (13:55)
[2025-02-24 15:17] VITALS: BP 120/74
[2025-02-24 15:22] LABS: Glycohemoglobin (HgbA1c) 6.4 % (4.0-5.6)
[2025-02-24] MEDS: DUONEB INH (15:32)
--- NOTE | 2025-02-24 16:13 | CM ---
Pt on oxygen 3.5 liter NC POx 95%.
Pt has home oxygen with [employer].
Danielle is supportive.
PLAN Will continue to assess for dc needs
[2025-02-24] MEDS: GLUCOPHAGE PO (18:17)
[2025-02-24] MEDS: LOVENOX 40 MG SC (18:18)
[2025-02-24 18:33] LABS: Glucose - Point of Care 117 mg/dl (70-99)
[2025-02-24] MEDS: GLUCOPHAGE 500 MG PO (20:05)
[2025-02-24] MEDS: LOPRESSOR 50 MG PO (20:05)
[2025-02-24] MEDS: LIPITOR 80 MG PO (20:05)
[2025-02-24] MEDS: PROTONIX 20 MG PO (20:06)
[2025-02-24] MEDS: NON-FORMULARY ITEM 100 MG PO (20:07)
[2025-02-24 21:16] LABS: Glucose - Point of Care 150 mg/dl (70-99)
[2025-02-24 23:26] VITALS: BP 109/68
[2025-02-25] MEDS: DUONEB 3 ML INH ×3 (07:22→14:25)
[2025-02-25 07:39] LABS: Glucose - Point of Care 102 mg/dl (70-99)
[2025-02-25 07:55] VITALS: BP 130/83
[2025-02-25 07:57] LABS: Hematocrit 45.1 % (39.0-52.0); Hemoglobin 14.6 g/dL (13.0-18.0); Mean Corp Hgb Conc. 32.4 g/dL (33.0-37.0); Mean Corpuscular Volume 90.0 fL (80.0-94.0); Nucleated Red Blood Cells % 0 % (-); Platelet Count 295 10^3/uL (130-400); Red Cell Dist. Width 17.5 % (11.5-14.5)
[2025-02-25 08:22] LABS: Blood Urea Nitrogen 27 mg/dl (9-20); Calcium 9.3 mg/dl (8.4-10.2); Carbon Dioxide 28 mmol/L (22-30); Chloride 107 mmol/L (98-107); Estimated Creatinine Clearance 66 ml/min; Glucose 109 mg/dl (70-99); Magnesium 2.2 mg/dl (1.6-2.3); Potassium 4.8 mmol/L (3.5-5.1); Sodium 141 mmol/L (135-145); eGFR > 60.00
[2025-02-25] MEDS: NOVOLOG FLEXPEN-LOW RESISTANCE SC ×2 (09:10→12:21)
[2025-02-25] MEDS: GLUCOPHAGE 500 MG PO (09:11)
[2025-02-25] MEDS: ASPIR LOW (ENTERIC COATED) 81 MG PO (09:11)
[2025-02-25] MEDS: LOPRESSOR 100 MG PO (09:11)
[2025-02-25] MEDS: COZAAR 50 MG PO (09:11)
[2025-02-25] MEDS: NON-FORMULARY ITEM 10 MG PO (09:12)
[2025-02-25] MEDS: FLUSH (NSS) 1 FLUSH IV (09:12)
[2025-02-25] MEDS: DECADRON 4 MG PO (09:12)
[2025-02-25] MEDS: FOLVITE 1 MG PO (09:12)
[2025-02-25] MEDS: NON-FORMULARY ITEM 100 MG PO (09:13)
--- NOTE | 2025-02-25 09:19 | W.PN.PUL3 ---
Today's Communication / Plan
-
Weaned down to 2L, satting 99% -- home O2 eval
Prednisone taper
Encouraged ambulating in room
Discharge planning per team
OP FU to be arranged
Assessment
-
Patient is a 79-year-old male with previous history of idiopathic pulm fibrosis, chronic respiratory failure on 2 L, adenocarcinoma of the lung status post chemotherapy, hypertension presenting with acute on chronic shortness of breath. He notes
that his shortness of breath has been progressing since July of this year. He feels he had to upper respiratory illnesses in July and then again in October treated with outpatient antibiotics. Since his October illness, he does not feel his
breathing had come back to baseline following treatment. He follows with Dr. Sherwood as an outpatient. He had recent CT scan demonstrating progression of ILD findings. He is maintained on Ofev. Initial proBNP and procalcitonin are negative on
admission. Admitted for ILD flare and placed on steroids. We are consulted for evaluation 02/24/25.
AE IPF
Acute on chronic shortness of breath
Acute on chronic hypoxemia, baseline use 2 L
Anxiety
Leukocytosis, mild
Hyperkalemia
Conditions present prior to admission
Mixed hyperlipidemia
Essential (primary) hypertension
CAD s/p Stented coronary artery
IPF followed by Dr Sherwood, TLC 43% DLCO 29%--severe restriction/severe diffusion impairment
Type 2 diabetes mellitus without complications
Bronchiectasis
Lung adenocarcinoma primary status post chemotherapy
Vasomotor rhinitis
Thoracic aortic ectasia
Obesity (BMI 30-39.9)
GERD (gastroesophageal reflux disease)
Plan
Hypoxemia noted on arrival, normally on 2L NC, weaned back to baseline 2L, satting 99%
Wean as tolerated
Home O2 evaluation - order placed
Prior history of lung disease is noted including severe end stage IPF, TLC with severe restriction
On Ofev as OP, not a transplant candidate likely based on age
Suspect patient has AE IPF, agree with IV steroids
CXR/CT obtained indicating progression of disease compared to prior
Other imaging reviewed
Transition to PO prednisone taper
proBNP neg, PCT neg
Prior ECHO results from September are reviewed indicating hyperdynamic function without significant pulmonary hypertension
Repeat echo this admission to evaluate degree of PH
Optimize nutrition
PT/OT
Will need outpatient pulmonary evaluation in our office for PFTs and 6MWT
Reviewed with patient
Discharge planning per team
Diagnostic Data
Chest X-Ray: 10/15/23-Stable findings suggesting moderate pulmonary fibrosis. Stable focal consolidation versus a mass in the right lower lung field. Status post ebus/bronchoscopy. No visualized pneumothorax.
CT Scan: CHEST 02/18/25- No CT evidence for acute pulmonary embolism. Again seen are findings compatible with advanced interstitial lung disease, likely UIP pattern. As seen previously, there is a more confluent area of non-specific airspace
consolidation within the superior segment of the right lower lobe. This area appears slightly enlarged compared to the prior CT from 10/14/2023 but similar size compared to more recent outside CT from 08/03/2024. Continued follow up suggested. Mildly
enlarged heart. Moderate aortic valve and coronary artery calcifications.
Echo: 10/06/24- Hyperdynamic left ventricular systolic function. Normal right ventricular size and function. Mild left atrial enlargement. Mild to moderate mitral regurgitation. Mild aortic stenosis, mean 10 mmHg. Dilated aortic root and ascending
aorta. Asc Ao 4.2 cm. Compared to prior study of 05/16/2021 MR has progressed to mild-moderate from mild. Aortic sclerosis has progressed to mild stenosis. The aorta has increased in diameter from 3.8 to 4.2 cm. Estimated pulmonary artery pressure
of 36 mmHg assuming a right atrial pressure of 3 mmHg.
PFT 01/04/25: The forced vital capacity was 2.01 L or 61% of predicted. The FEV1 was 1.68 L or 72% of predicted. The FEV1/FVC ratio was 84%. The lung volumes revealed moderate restrictive lung disease. The total lung capacity was 2.6 L or 43% of
predicted. The diffusing capacity was severely reduced at 6.1 or 29% of predicted. (severe restriction, severe diffusion)
Pulmonary function studies-01/09/24: Spirometry demonstrated mild restrictive lung disease. The forced vital capacity was 2.34 L or 69% of predicted. The FEV1 was 1.91 L or 79% of predicted. The FEV1/FVC ratio was 82%. Lung volumes demonstrated
moderate restrictive lung disease. The total lung capacity was 3.47 L or 56% of predicted. The diffusing capacity was 8.9 or 41% of predicted consistent with a moderate gas exchange deficit.
Reports and relevant images were personally reviewed.
Total time spent on this consultation __50__ minutes which includes review of history, physical exam, medications, laboratory data, personal review of imaging, extensive review of outpatient records, discussion with care team and respiratory therapy.
Subjective Data
-
Date of Service:
Date of Service: February 25, 2025
Chief Complaint: Pulmonary Follow Up
Subjective:
No new complaints, ambulating in room
Weaned down to 2L NC, satting 99%
Objective Data
Data Reviewed
Vital Signs / I&O / Oxygen:
Vital Signs
Temp Pulse Resp BP Pulse Ox
97.6 F 73 20 130/83 100
02/25/25 07:55 02/25/25 09:11 02/25/25 07:55 02/25/25 09:11 02/25/25 09:10
Intake and Output
02/24/25 02/25/25 02/26/25
06:59 06:59 06:59
Intake Total 1680 / 1680
Balance 1680 / 1680
SaO2 100
Nasal Cannula flow liters per 3
minute
Physical Exam
General: Comfortable and Other (NAD)
HEENT: Normocephalic, Anicteric and Moist Mucous Membranes
Cardiovascular: S1-S2 and Regular Rhythm
Respiratory: Crackles and Non-Labored Respirations
GI: Soft, Non Distended and Non Tender
Neurology: Awake, Alert, Oriented and No Motor Deficits
Skin: Warm, Dry and Good Color
Labs/Micro/Reports
Lab Data
02/25/25 07:22
02/25/25 07:22
[2025-02-25 12:15] LABS: Glucose - Point of Care 122 mg/dl (70-99)
--- NOTE | 2025-02-25 12:22 | W.DCSUMMARY ---
Discharge Summary
Discharge Data
Date of Admission: 02/23/25
Date of Discharge: 02/25/25
Total time spent discharging patient (in min): 56
-
Pending Results: No
Hospital Course
Mr. Thomas is a 79-year-old male with a medical history of right lung adenocarcinoma (on chemotherapy with [facility]), pulmonary fibrosis, chronic respiratory failure (2 L at baseline), CAD, hypertension, and NIDDM who presented with
cough and worsening dyspnea. He feels his respiratory status has been declining over the past 3 months, roughly since that time he was last treated for pneumonia in October at [place]. He has had a chronic nonproductive cough since that time. He
feels like his breathing has become worse and he is significantly short of breath with minimal exertion. He has an oxygen concentrator that he carries with him when ambulatory and a larger concentrator that he uses when sleeping. He follows
regularly with his primary languages and literature instructor, Dr. Sherwood, who ordered a CT angiography of his chest on 02/18 which showed no evidence of PE. He was admitted for further evaluation and management of suspected ILD flare.
He continued to have a nonproductive cough which he reports has been persistent for the past few months. He remained afebrile. He did develop a leukocytosis however this is likely due to the fact that he was given a few days of oral steroids. His
oxygen was increased to 3 L from his baseline of 2 L with improvement in his breathing. I suspect this is primarily progression of his interstitial lung disease rather than an acute flare or infection. However, he will be discharged home with a
short oral steroid taper. We discussed that he should increase his supplemental oxygen as needed especially with exertion and keep track of how much oxygen he is requiring on average day-to-day in order to plan further management with his primary
languages and literature instructor. He was monitored by pulmonology while inpatient and will need close follow-up after discharge. His inpatient echocardiogram showed preserved ejection fraction, normal right ventricular size and function, and mild to moderate mitral
regurgitation. He was medically stable at time of hospital discharge.
General: No Apparent Distress, Comfortable and Conversant
HEENT: NormoCephalic, Moist mucous membranes, Atraumatic, nasal cannula in place
Respiratory: Scattered inspiratory crackles bilaterally, Non Labored Respirations
Cardiac: S1/S2 and Regular Rhythm; No Rub or Gallop
GI: Soft, Non Tender, Non Distended and Normal Bowel Sounds
Musculoskeletal: No Edema, no deformity
Skin: Warm and dry
: NO Wies
Neuro: Awake, Alert, Nonfocal/grossly intact
Psych: Calm and Intact Judgment/Insight
Discharge Plan
-
Patient Disposition: Home (Routine Discharge)
Discharge Diagnosis/Procedures: Interstitial lung disease with acute flare
Activity Restrictions/Additional Instructions:
Mr. Thomas is a 79-year-old male with a medical history of right lung adenocarcinoma (on chemotherapy with [facility]), pulmonary fibrosis, chronic respiratory failure (2 L at baseline), CAD, hypertension, and NIDDM who presented with
cough and worsening dyspnea. He feels his respiratory status has been declining over the past 3 months, roughly since that time he was last treated for pneumonia in October at [place]. He has had a chronic nonproductive cough since that time. He
feels like his breathing has become worse and he is significantly short of breath with minimal exertion. He has an oxygen concentrator that he carries with him when ambulatory and a larger concentrator that he uses when sleeping. He follows
regularly with his primary languages and literature instructor, Dr. Sherwood, who ordered a CT angiography of his chest on 02/18 which showed no evidence of PE. He was admitted for further evaluation and management of suspected ILD flare.
He continued to have a nonproductive cough which he reports has been persistent for the past few months. He remained afebrile. He did develop a leukocytosis however this is likely due to the fact that he was given a few days of oral steroids. His
oxygen was increased to 3 L from his baseline of 2 L with improvement in his breathing. I suspect this is primarily progression of his interstitial lung disease rather than an acute flare or infection. However, he will be discharged home with a
short oral steroid taper. We discussed that he should increase his supplemental oxygen as needed especially with exertion and keep track of how much oxygen he is requiring on average day-to-day in order to plan further management with his primary
languages and literature instructor. He was monitored by pulmonology while inpatient and will need close follow-up after discharge. His inpatient echocardiogram showed preserved ejection fraction, normal right ventricular size and function, and mild to moderate mitral
regurgitation. He was medically stable at time of hospital discharge.
Referrals:
Rosendo Gonzalez CRNP [Family Provider, [facility]]
Prescriptions:
New
ipratropium bromide 21 mcg (0.03 %) spray,non-aerosol
2 spray intranasal BID Qty: 30 0RF
prednisone 10 mg tablet
See Taper PO DIRECTED Qty: 10 0RF
Taper: Prednisone DC Starting at 40 mg daily
40 mg Daily for 1 Day and 0 Hour
30 mg Daily for 1 Day and 0 Hour
20 mg Daily for 1 Day and 0 Hour
10 mg Daily for 1 Day and 0 Hour
Continued
losartan 50 mg Tablet
50 mg PO DAILY
metformin 500 mg Tablet
500 mg PO BID
atorvastatin 80 mg Tablet
80 mg PO HS
aspirin 81 mg Tablet,Delayed Release (Dr/Ec)
81 mg PO DAILY
metoprolol tartrate 50 mg Tablet
100 mg PO DAILY
metoprolol tartrate 50 mg Tablet
50 mg PO HS
esomeprazole magnesium [Nexium] 20 mg Capsule,Delayed Release(Dr/Ec)
20 mg PO HS
Jardiance 10 mg Tablet
10 mg PO DAILY
Ofev 100 mg Capsule
100 mg PO Q12H
acetaminophen [Tylenol] 325 mg Tablet
650 mg PO Q6HPRN PRN (Reason: mild pain)
olanzapine 5 mg Tablet
5 mg PO DIRECTED
Rx Instructions:
take 5 days before chemo
dexamethasone 4 mg Tablet
4 mg PO DIRECTED
Rx Instructions:
take 8mg 2 days before and 2 after chemo treatment
folic acid 1 mg Tablet
1 mg PO DAILY
pemetrexed disodium [Alimta] 500 mg Recon Soln
900 mg IV Q4W
Discharge Orders:
Discharge Patient (As Directed); Ordered 02/25/25
Ordered By: Joao Rivers
Discharge Date and Time
Print Language: GERMAN
--- NOTE | 2025-02-25 14:22 | CM ---
MD entered order for discharge.
Spoke with pt and Danielle Pt said he was ready for discharge.
Offered VN requested [facility] , [place] liaison [facility] notified of referral.
will drive him home . She said she will bring portable oxygen .
IMM reviewed signed on chart.
PLAn Home with [facility]
--- NOTE | 2025-02-25 14:33 | VNURNOTE ---
Addendum entered by Shona Brown RN 02/25/25 15:44:
Home Health Liaison spoke with patient and spouse on speakerphone to discuss [facility] nurse/therapy, visits, schedule and homebound status. Patient is agreeable and understands that visits at home will be 2-3 x per week to assess and teach medical
management. 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 Patient is aware that [facility] will contact them for start of care in 1-2 days after discharge from . Provided contact number for [facility].
[facility] referral accepted in [facility].
Original Note:
Chart reviewed. Patient DC'ed prior to liaison meeting him. [facility] Referral placed in [facility].
[2025-02-25 15:18] VITALS: BP 99/70
== END 2025-02-25 15:29 | disposition home health service (06) | DRG 196 ==
LOC: 4 EAST ACU 16:51
PROVIDERS: Student in an Organized Health Care Education/Training Program; ADMITTING PHYSICIAN Hospitalist; ATTENDING PHYSICIAN Internal Medicine; CONSULT PHYSICIAN Internal Medicine; EMERGENCY PHYSICIAN Emergency Medicine; FAMILY PHYSICIAN Nurse Practitioner Family
DX: J84.112 Idiopathic pulmonary fibrosis (principal); J96.21 Acute and chronic respiratory failure with hypoxia; C34.91 Malignant neoplasm of unspecified part of right bronchus or lung; I10 Essential (primary) hypertension; E11.9 Type 2 diabetes mellitus without complications; E78.2 Mixed hyperlipidemia; I25.10 Atherosclerotic heart disease of native coronary artery without angina pectoris; I45.10 Unspecified right bundle-branch block; D72.829 Elevated white blood cell count, unspecified; F41.9 Anxiety disorder, unspecified; E87.5 Hyperkalemia; E66.9 Obesity, unspecified; I77.810 Thoracic aortic ectasia; J47.9 Bronchiectasis, uncomplicated; I34.0 Nonrheumatic mitral (valve) insufficiency; K21.9 Gastro-esophageal reflux disease without esophagitis; J30.0 Vasomotor rhinitis; N40.0 Benign prostatic hyperplasia without lower urinary tract symptoms; Z99.81 Dependence on supplemental oxygen; Z87.442 Personal history of urinary calculi; Z87.01 Personal history of pneumonia (recurrent); Z92.21 Personal history of antineoplastic chemotherapy; Z87.891 Personal history of nicotine dependence; Z85.828 Personal history of other malignant neoplasm of skin; Z88.8 Allergy status to other drugs, medicaments and biological substances; Z79.84 Long term (current) use of oral hypoglycemic drugs; Z68.30 Body mass index [BMI] 30.0-30.9, adult; Z95.5 Presence of coronary angioplasty implant and graft
CPT/HCPCS: 80048; 82962; 83036; 83735; 83880; 84100; 84145; 84484; 85025; 93005; 93306; 93356; 94640; 96374; 99285

== ENCOUNTER → 2025-07-05 13:53 | Outpatient (REF) | payer MEDICARE, OTHER, SELFPAY | LOC: HWRCS 13:53 | PROVIDERS: ATTENDING PHYSICIAN Internal Medicine; FAMILY PHYSICIAN Nurse Practitioner Family | DX: I35.0 Nonrheumatic aortic (valve) stenosis (principal); I10 Essential (primary) hypertension | CPT/HCPCS: 93306 ==